=== PATIENT | male | born 1950 | race Caucasian/White ===

== ENCOUNTER 2018-03-11 09:57 | Emergency (ER) | payer MEDICARE, SELFPAY ==
[2018-03-11 10:04] VITALS: BP 177/76; PULSE 67; RESP 16; TEMP 37; O2SAT 95
--- NOTE | 2018-03-11 10:57 | DI.CT_ITS ---
SYMPTOMS/DIAGNOSIS: LEFT FLANK PAIN RENAL COLIC CT: There is a 0.5 cm stone just proximal to the left ureterovesical junction causing mild to moderate hydronephrosis. There are nonobstructing stones seen in the left kidney. There is a 6.3 cm transverse x 5.4 cm craniocaudad x 6.5 cm AP hypodense mass in the inferior aspect of the left kidney. The right kidney shows no evidence of nephrolithiasis or obstructive uropathy. The urinary bladder is intact. The reproductive organs are unremarkable. The lack of IV contrast does limit evaluation of the abdominal and pelvic organs. There does appear to be decreased attenuation of the liver, suggesting hepatic steatosis. The gallbladder is negative. No biliary ductal dilatation is seen. No adrenal mass is present. The pancreas appears grossly unremarkable. There is atherosclerosis of the abdominal aorta, but no aneurysmal dilatation. The bowel shows no evidence of obstruction or inflammation. There is a normal retrocecal appendix present. Degenerative changes are seen in the spine. IMPRESSION: 1. A 5-6 mm stone in the distal left ureter causing mild to moderate hydronephrosis. 2. A 6.5 cm mass involving the lower pole of the left kidney. Neoplasm is suspected. A CT scan of the abdomen with contrast is recommended for further evaluation. 3. Left nephrolithiasis. The findings were discussed with the Emergency Department on the date of the examination.
--- NOTE | 2018-03-11 10:59 | W.ED.GENAD ---
Discharge Plan Disposition Patient Disposition: HOME Discharge Details Chief Complaint: Abd Prob Clinical Impression: Ureteral calculus, left, Left renal mass Primary Care Provider: Cedric Bowens ED Provider: Renny Laura Home Meds and New Rx's Prescriptions: New tamsulosin [Flomax] 0.4 mg capsule 0.4 mg PO DAILY Qty: 3 RF: 0 Continued clobetasol 60 GM ointment 60 gm Topical Twice a week Qty: 60 RF: 1 celecoxib [Celebrex] 200 MG capsule 200 mg PO DAILY Qty: 90 RF: 4 dofetilide 500 MCG capsule 500 mcg PO BID RF: 0 rosuvastatin [Crestor] 5 MG tablet 1 tab PO DAILY Qty: 90 RF: 4 Eliquis 5 MG tablet 5 mg PO BID Qty: 180 RF: 4 lisinopril 10 MG tablet 10 mg PO DAILY Qty: 90 RF: 4 Metoprolol Succinate 25 MG TAB.ER.24H 25 mg PO DAILY Qty: 90 RF: 4 multivitamin 1 EACH capsule 1 ea PO DAILY RF: 0 Discharge Instructions Instructions: Kidney Stones (ED), How to Strain Your Urine (ED) Additional Instructions: Please follow-up with oncology regarding left renal mass. Please contact your primary care physician to arrange follow-up. Return to the ER for any worsening or new concerning symptoms. Referrals: Cedric Bowens MD [Primary Care Provider] - Medical Decision Making 11:04 --67-year-old male with history of atrial fibrillation, hypertension, umbilical hernia, here with 3-4 days of persistent left back and flank pain. Minimally tender left lower quadrant with no peritoneal findings. Pain improved after taking NSAID this morning. Concern for renal stone versus diverticulitis versus other. Plan for stat CT of the abdomen pelvis. 13:00 --noncontrast CT abdomen and interpreted by radiology: 6 mm renal stone distal left ureter; left renal mass noted, recommend patient for CT with contrast. Labs reviewed and hematuria noted. 14:10 --CT of the abdomen pelvis with IV contrast interpreted by radiology: 7 cm left renal mass concerning for carcinoma. Call to [facility] [place] oncology to expedite follow-up. 14:55 -- Spoke with organic preparation technician oncologist at [facility] [place] - recommends outpatient workup to include staging imaging and biopsy of lesion. I called and spoke with Dr. Lua, covering for PCP Dr. Bowens, she will ensure expedited outpatient workup. Plan discussed with patient. HPI General Mode of arrival: ambulatory. Date/Time Provider Initiated Documentation: 03/11/18 10:18. Limitations to Documentation: no limitations. Information obtained by: patient and family. HPI Narrative: 67-year-old male with history of hypertension, A. fib, back pain, presents with chief complaint of left flank pain. Pain started 3-4 days ago and has persisted. Pain was initially localized to his left back and has since radiated around to his left flank and left lower abdomen. Pain is mild, described as a persistent pain and intermittently sharp with palpation and certain positions including flexing to the left. No dysuria, no hematuria, no nausea or vomiting. No fever. Related Data Home Medications Medication Instructions Recorded Confirmed multivitamin 1 ea PO DAILY 08/27/14 03/11/18 clobetasol 60 gm TOPICAL Twice a week #60 g 10/06/14 03/11/18 celecoxib [Celebrex] 200 mg PO DAILY #90 tab 03/03/16 03/11/18 dofetilide 500 mcg PO BID 04/21/16 03/11/18 Eliquis 5 mg PO BID #180 tab-cap 07/06/16 03/11/18 rosuvastatin [Crestor] 1 tab PO DAILY #90 tab 07/06/16 03/11/18 lisinopril 10 mg PO DAILY #90 tab-cap 01/16/17 03/11/18 tamsulosin [Flomax] 0.4 mg PO DAILY #3 cap 03/11/18 Previous Rx's Medication Instructions Recorded lisinopril 10 mg PO DAILY #90 tab-cap 01/16/17 tamsulosin [Flomax] 0.4 mg PO DAILY #3 cap 03/11/18 Allergies Allergy/AdvReac Type Severity Reaction Status Date / Time simvastatin AdvReac Intermediate MYALGIAS Unverified 03/11/18 10:08 General Stated Complaint: Abd Prob SHALA: 3 Review of Systems Review of Systems All systems reviewed & are unremarkable except as noted in HPI and below Respiratory Denies cough Gastrointestinal Reports abdominal pain and Denies vomiting PFSH Surgical History Amputation Arthroplasty of knee Arthroscopy Open Carpal Tunnel release Replacement of total knee joint Rotator Cuff Repair hernia repair Family History Mother Essential hypertension Heart disease Hyperlipidemia Father Essential hypertension Heart disease Hyperlipidemia Leukemia Sister No problems noted. Brother Essential hypertension Hyperlipidemia Grandfather Heart disease Grandfather Neoplasm Grandmother Heart disease Grandmother Heart disease Sister No problems noted. Brother Substance abuse Alcohol abuse Daughter No problems noted. Social History Smoking/Tobacco Use Status: Never Exam Const General: cooperative and no acute distress HENMT Head: normocephalic and atraumatic Mouth: moist mucous membranes Eyes Conjunctivae: normal conjunctivae Sclera: normal sclerae EOM: EOM intact bilaterally Neck Neck: trachea midline and supple Resp Auscultation: clear to auscultation bilaterally, no rales, no rhonchi and no wheezes Cardio Jugular venous pressure: no JVD Rate: regular rate and not tachycardic Rhythm: regular rhythm GI Palpation: soft, not firm, no guarding, no masses, not rigid and tender in the LLQ (lateral) Back/Spine/Pelvis Back: no CVA tenderness Skin General skin exam: no rashes or lesions noted Neuro General: alert, awake, oriented x3 and tone normal Extrem General: no edema Psych Appearance: grossly normal Mental Status: mental status grossly normal Speech and Movement: speech and movement normal Course Vital Signs Temperature 37 C 03/11/18 10:04 Pulse 67 03/11/18 10:04 Respiratory Rate 16 03/11/18 10:04 Blood Pressure 177/76 H 03/11/18 10:04 Pulse Oximetry 95 03/11/18 10:04 Temperature 37 C 03/11/18 10:04 Temperature Source Skin 03/11/18 10:04 Pulse 67 03/11/18 10:04 Respiratory Rate 16 03/11/18 10:04 Respiratory Effort Non-Labored 03/11/18 10:48 Blood Pressure 177/76 H 03/11/18 10:04 Blood Pressure Position Sitting 03/11/18 10:04 Pulse Oximetry 95 03/11/18 10:04 Oxygen Delivery Method Room Air 03/11/18 10:04 Oxygen Flow Rate 0 03/11/18 10:04 Pain Level 3 03/11/18 10:04
--- NOTE | 2018-03-11 11:05 | ED.GENADUL_ITS ---
Discharge Plan Disposition Patient Disposition: HOME Discharge Details Chief Complaint: Abd Prob Clinical Impression: Ureteral calculus, left, Left renal mass Primary Care Provider: Cedric Bowens ED Provider: Renny Laura Home Meds and New Rx's Prescriptions: New tamsulosin [Flomax] 0.4 mg capsule 0.4 mg PO DAILY Qty: 3 RF: 0 Continued clobetasol 60 GM ointment 60 gm Topical Twice a week Qty: 60 RF: 1 celecoxib [Celebrex] 200 MG capsule 200 mg PO DAILY Qty: 90 RF: 4 dofetilide 500 MCG capsule 500 mcg PO BID RF: 0 rosuvastatin [Crestor] 5 MG tablet 1 tab PO DAILY Qty: 90 RF: 4 Eliquis 5 MG tablet 5 mg PO BID Qty: 180 RF: 4 lisinopril 10 MG tablet 10 mg PO DAILY Qty: 90 RF: 4 Metoprolol Succinate 25 MG TAB.ER.24H 25 mg PO DAILY Qty: 90 RF: 4 multivitamin 1 EACH capsule 1 ea PO DAILY RF: 0 Discharge Instructions Instructions: Kidney Stones (ED), How to Strain Your Urine (ED) Additional Instructions: Please follow-up with oncology regarding left renal mass. Please contact your primary care physician to arrange follow-up. Return to the ER for any worsening or new concerning symptoms. Referrals: Cedric Bowens MD [Primary Care Provider] - Medical Decision Making 11:04 --67-year-old male with history of atrial fibrillation, hypertension, umbilical hernia, here with 3-4 days of persistent left back and flank pain. Minimally tender left lower quadrant with no peritoneal findings. Pain improved after taking NSAID this morning. Concern for renal stone versus diverticulitis versus other. Plan for stat CT of the abdomen pelvis. 13:00 --noncontrast CT abdomen and interpreted by radiology: 6 mm renal stone distal left ureter; left renal mass noted, recommend patient for CT with contrast. Labs reviewed and hematuria noted. 14:10 --CT of the abdomen pelvis with IV contrast interpreted by radiology: 7 cm left renal mass concerning for carcinoma. Call to [facility] [place] oncology to expedite follow-up. 14:55 -- Spoke with configuration consultant oncologist at [facility] [place] - recommends outpatient workup to include staging imaging and biopsy of lesion. I called and spoke with Dr. Lua, covering for PCP Dr. Bowens, she will ensure expedited outpatient workup. Plan discussed with patient. HPI General Mode of arrival: ambulatory . Date/Time Provider Initiated Documentation: 03/11/18 10:18 . Limitations to Documentation: no limitations . Information obtained by: patient and family . HPI Narrative: 67-year-old male with history of hypertension, A. fib, back pain, presents with chief complaint of left flank pain. Pain started 3-4 days ago and has persisted. Pain was initially localized to his left back and has since radiated around to his left flank and left lower abdomen. Pain is mild, described as a persistent pain and intermittently sharp with palpation and certain positions including flexing to the left. No dysuria, no hematuria, no nausea or vomiting. No fever. Related Data Home Medications Medication Instructions Recorded Confirmed multivitamin 1 ea PO DAILY 08/27/14 03/11/18 clobetasol 60 gm TOPICAL Twice a week #60 g 10/06/14 03/11/18 celecoxib [Celebrex] 200 mg PO DAILY #90 tab 03/03/16 03/11/18 dofetilide 500 mcg PO BID 04/21/16 03/11/18 Eliquis 5 mg PO BID #180 tab-cap 07/06/16 03/11/18 rosuvastatin [Crestor] 1 tab PO DAILY #90 tab 07/06/16 03/11/18 lisinopril 10 mg PO DAILY #90 tab-cap 01/16/17 03/11/18 tamsulosin [Flomax] 0.4 mg PO DAILY #3 cap 03/11/18 Previous Rx's Medication Instructions Recorded lisinopril 10 mg PO DAILY #90 tab-cap 01/16/17 tamsulosin [Flomax] 0.4 mg PO DAILY #3 cap 03/11/18 Allergies Allergy/AdvReac Type Severity Reaction Status Date / Time simvastatin AdvReac Intermediate MYALGIAS Unverified 03/11/18 10:08 General Stated Complaint: Abd Prob SHALA: 3 Review of Systems Review of Systems All systems reviewed & are unremarkable except as noted in HPI and below Respiratory Denies cough Gastrointestinal Reports abdominal pain and Denies vomiting PFSH Surgical History Amputation Arthroplasty of knee Arthroscopy Open Carpal Tunnel release Replacement of total knee joint Rotator Cuff Repair hernia repair Family History Mother Essential hypertension Heart disease Hyperlipidemia Father Essential hypertension Heart disease Hyperlipidemia Leukemia Sister No problems noted. Brother Essential hypertension Hyperlipidemia Grandfather Heart disease Grandfather Neoplasm Grandmother Heart disease Grandmother Heart disease Sister No problems noted. Brother Substance abuse Alcohol abuse Daughter No problems noted. Social History Smoking/Tobacco Use Status: Never Exam Const General: cooperative and no acute distress HENMT Head: normocephalic and atraumatic Mouth: moist mucous membranes Eyes Conjunctivae: normal conjunctivae Sclera: normal sclerae EOM: EOM intact bilaterally Neck Neck: trachea midline and supple Resp Auscultation: clear to auscultation bilaterally, no rales, no rhonchi and no wheezes Cardio Jugular venous pressure: no JVD Rate: regular rate and not tachycardic Rhythm: regular rhythm GI Palpation: soft, not firm, no guarding, no masses, not rigid and tender in the LLQ (lateral) Back/Spine/Pelvis Back: no CVA tenderness Skin General skin exam: no rashes or lesions noted Neuro General: alert, awake, oriented x3 and tone normal Extrem General: no edema Psych Appearance: grossly normal Mental Status: mental status grossly normal Speech and Movement: speech and movement normal Course Vital Signs Temperature 37 C 03/11/18 10:04 Pulse 67 03/11/18 10:04 Respiratory Rate 16 03/11/18 10:04 Blood Pressure 177/76 H 03/11/18 10:04 Pulse Oximetry 95 03/11/18 10:04 Temperature 37 C 03/11/18 10:04 Temperature Source Skin 03/11/18 10:04 Pulse 67 03/11/18 10:04 Respiratory Rate 16 03/11/18 10:04 Respiratory Effort Non-Labored 03/11/18 10:48 Blood Pressure 177/76 H 03/11/18 10:04 Blood Pressure Position Sitting 03/11/18 10:04 Pulse Oximetry 95 03/11/18 10:04 Oxygen Delivery Method Room Air 03/11/18 10:04 Oxygen Flow Rate 0 03/11/18 10:04 Pain Level 3 03/11/18 10:04
[2018-03-11] MEDS: Lactated Ringers 1,000 ML 125 ML IV (11:23)
[2018-03-11 11:27] LABS: Abs Immature Grans 0.01 k/cumm (0.0-0.09); Absolute Basophil Count 0.02 k/cumm (0.0-0.2); Absolute Eosinophil Count 0.06 k/cumm (0.0-0.7); Absolute Lymphocyte Count 0.84 k/cumm (1.2-3.4); Absolute Monocyte Count 0.77 k/cumm (0.11-0.7); Absolute Neutrophil Count 7.18 k/cumm (1.2-6.7); Basophils % 0.2; Eosinophils % 0.7; HCT 42.1 % (40.0-50.0); HGB 14.1 g/dL (13.5-17.5); Immature Grans % 0.1; Lymphocytes % 9.5; Mean Corp. HGB Concentration 33.5 g/dL (32.0-36.0); Mean Corpuscular Hemoglobin 31.4 pg (27.0-33.0); Mean Corpuscular Volume 93.8 fL (80-95); Mean Platelet Volume 10.6 fL (8.0-11.0); Monocytes % 8.7; Neutrophils % 80.8; Platelet Count 162 x1000/uL (130-400); RBC 4.49 m/cumm (4.50-6.00); RBC Distribution Width 13.5 % (11.8-14.1); White Blood Cell Count 8.88 k/cumm (4.4-10.8)
[2018-03-11 11:31] LABS: Bilirubin Negative (Negative); Blood Large (Negative); Clarity Clear; Glucose Negative (Negative); Ketones Negative (Negative); Leukocyte Esterase Negative (Negative); Nitrite Negative (Negative); Specific Gravity 1.025 (1.005-1.025); Urobilinogen 0.2 EU/dL (Up TO 0.2); pH 5.5 (5-8)
[2018-03-11 11:41] LABS: ALT 43 U/L (12-78); AST 29 U/L (15-37); Albumin 3.7 g/dL (3.4-5.0); Alkaline Phosphatase 58 U/L (46-116); Anion Gap 12.5 mmol/L (3-11); BUN 20 mg/dL (7-18); Bilirubin, Total 0.8 mg/dL (0.2-1.0); CO2 25.5 mmol/L (21.0-32.0); CREATININE 1.16 mg/dL (0.70-1.30); Calcium 9.1 mg/dL (8.5-10.1); Chloride 100 mmol/L (98-107); Glucose 108 mg/dL (70-100); Lipase 66 U/L (73-393); Potassium 4.3 mmol/L (3.5-5.1); Sodium 138 mmol/L (136-145); Total Protein 7.8 g/dL (6.4-8.2)
[2018-03-11 11:49] LABS: Bacteria Few HPF (Negative); C & S Indicated? No; Casts Negative LPF (Negative); Crystals Negative HPF (Negative); Epithelial Cells Negative HPF (Negative); Mucus Moderate (Negative); Other Cells Few Renal (Negative); RBC >50 (0-2)
--- NOTE | 2018-03-11 12:15 | DI.CT_ITS ---
SYMPTOMS/DIAGNOSIS: LEFT FLANK PAIN, FINDING ON NONCONTRAST STUDY CT SCAN OF THE ABDOMEN: CT scan of the abdomen was performed following the uneventful administration of intravenous contrast material. Comparison examination is from earlier in the day. There is delayed contrast in the left kidney with moderate dilatation of the collecting system consistent with the patient's known obstructing distal left ureteral calculus. There are nonobstructing stones seen within the left kidney. There is an enhancing mass in the lower pole of the left kidney measuring 6.8 cm AP x 6.2 cm transverse x 5.9 cm craniocaudad. There is central low attenuation, which may reflect necrosis. Primary diagnostic concern is for renal cell carcinoma. The right kidney shows normal enhancement. No obstruction is seen. There is decreased attenuation diffusely in the liver consistent with fatty infiltration. No hepatic mass is seen. The portal and superior mesenteric veins are patent. The gallbladder is negative. No biliary ductal dilatation is seen. There is no evidence of an adrenal mass. The pancreas is grossly unremarkable. There is no abdominal ascites, adenopathy or pneumoperitoneum. The bowel appears grossly unremarkable. There is atherosclerosis of the abdominal aorta, but no aneurysmal dilatation is seen. The renal vein appears patent and grossly unremarkable. There are degenerative changes seen in the spine. No gross lytic or sclerotic lesions are present. IMPRESSION: 1. A 6.8 cm heterogeneously enhancing mass involving the lower pole of the left kidney. Primary diagnostic concern is for a renal neoplasm. 2. Left hydronephrosis due to a distal obstructing stone seen on the renal colic CT from earlier in the day. 3. Left nephrolithiasis. The findings were discussed with the Emergency Department on the date of the examination.
[2018-03-11 12:44] VITALS: BP 145/61; PULSE 58; RESP 16; TEMP 37.2; O2SAT 95
[2018-03-11] MEDS: Omnipaque 350 MG/ML 100 ML BTL IV (13:17)
[2018-03-11] MEDS: Ibuprofen 400 MG TAB PO (14:34)
[2018-03-11] MEDS: oxyCODONE 5 MG TAB PO (14:34)
[2018-03-11] MEDS: Tamsulosin 0.4 MG CAPCR PO (14:35)
[2018-03-11] MEDS: Ondansetron O.D.T. 4 MG TABEF PO (14:38)
== END 2018-03-11 15:23 | disposition home or self-care (01) ==
PROVIDERS: Emergency Provider Student in an Organized Health Care Education/Training Program; PCP Family Medicine
DX: N20.1 Calculus of ureter (principal); N28.89 Other specified disorders of kidney and ureter; I10 Essential (primary) hypertension; I48.91 Unspecified atrial fibrillation
CPT/HCPCS: 36415; 80053; 83690; 96360; 96361; 99285; 74160; 74176; 81003; 81015; 85025; 99284; J3490

== ENCOUNTER 2022-11-14 02:45 | Outpatient (CLI) | payer MEDICARE, SELFPAY ==
[2022-11-14 09:12] LABS: Abs Immature Grans 0.03 10^3/uL (0.0-0.06); Absolute Basophil Count 0.02 10^3/uL (0.0-0.2); Absolute Eosinophil Count 0.23 10^3/uL (0.0-0.7); Absolute Lymphocyte Count 0.92 10^3/uL (1.2-3.4); Absolute Monocyte Count 0.56 10^3/uL (0.1-0.8); Absolute Neutrophil Count 4.38 10^3/uL (1.2-6.7); Basophils % 0.3; Eosinophils % 3.7; HCT 36.5 % (40.0-50.0); HGB 12.2 g/dL (13.5-17.5); Immature Grans % 0.5; MCH 29.9 pg (27.0-33.0); MCHC 33.4 % (32.0-36.0); MCV 90 fL (80-95); MPV 10.2 fL (8.0-11.0); Monocytes % 9.1; Neutrophils % 71.4; Platelet Count 172 10^3/uL (130-400); RBC 4.08 10^6/uL (4.36-5.78); RDW 14.3 % (11.8-14.1); WBC 6.14 10^3/uL (4.4-10.8)
[2022-11-14 09:38] LABS: ALT 30 U/L (16-63); AST 29 U/L (15-37); Albumin 3.3 g/dL (3.4-5.0); Alkaline Phosphatase 66 U/L (46-116); Anion Gap 7.7 mmol/L (3-11); BUN 18 mg/dL (7-18); Bilirubin, Total 0.4 mg/dL (0.2-1.0); CO2 26.3 mmol/L (21.0-32.0); CREATININE 1.1 mg/dL (0.70-1.30); Chloride 101 mmol/L (98-107); Estimated GFR 70.88 (mL/min/1.73m2); FREE T4 0.88 ng/dL (0.76-1.46); Glucose 137 mg/dL (74-106); Sodium 135 mmol/L (136-145); TSH 1.75 uIU/mL (0.36-3.74); Total Protein 7.2 g/dL (6.4-8.2)
== END 2022-11-14 02:46 | disposition home or self-care (01) ==
LOC: LBO 02:45
PROVIDERS: Visit Provider Internal Medicine
DX: C78.01 Secondary malignant neoplasm of right lung (principal); C64.9 Malignant neoplasm of unspecified kidney, except renal pelvis; Z79.899 Other long term (current) drug therapy; I48.0 Paroxysmal atrial fibrillation
CPT/HCPCS: 36415; 80053; 83735; 84439; 84443; 85025

== ENCOUNTER 2022-12-05 01:59 | Outpatient (CLI) | payer MEDICARE, SELFPAY ==
[2022-12-05 09:30] LABS: Abs Immature Grans 0.02 10^3/uL (0.0-0.06); Absolute Basophil Count 0.05 10^3/uL (0.0-0.2); Absolute Eosinophil Count 0.27 10^3/uL (0.0-0.7); Absolute Lymphocyte Count 1.03 10^3/uL (1.2-3.4); Absolute Neutrophil Count 4.07 10^3/uL (1.2-6.7); Basophils % 0.8; Eosinophils % 4.5; HCT 38.2 % (40.0-50.0); HGB 12.7 g/dL (13.5-17.5); Immature Grans % 0.3; Lymphocytes % 17.1; MCHC 33.2 % (32.0-36.0); MCV 90 fL (80-95); MPV 10.2 fL (8.0-11.0); Monocytes % 9.9; Neutrophils % 67.4; Platelet Count 177 10^3/uL (130-400); RBC 4.23 10^6/uL (4.36-5.78); RDW 14.5 % (11.8-14.1); RDW-SD 47.6 fL; WBC 6.04 10^3/uL (4.4-10.8)
[2022-12-05 09:56] LABS: ALT 39 U/L (16-63); AST 24 U/L (15-37); Albumin 3.2 g/dL (3.4-5.0); Alkaline Phosphatase 66 U/L (46-116); Anion Gap 7.7 mmol/L (3-11); BUN 19 mg/dL (7-18); Bilirubin, Total 0.4 mg/dL (0.2-1.0); CO2 23.3 mmol/L (21.0-32.0); CREATININE 1.2 mg/dL (0.70-1.30); Chloride 106 mmol/L (98-107); Estimated GFR 63.46 (mL/min/1.73m2); FREE T4 1.26 ng/dL (0.76-1.46); Glucose 128 mg/dL (74-106); Magnesium 1.8 mg/dL (1.8-2.4); Potassium 3.9 mmol/L (3.5-5.1); Sodium 137 mmol/L (136-145); TSH 0.09 uIU/mL (0.36-3.74)
== END 2022-12-05 02:00 | disposition home or self-care (01) ==
LOC: LBO 01:59
PROVIDERS: Visit Provider Internal Medicine
DX: Z79.899 Other long term (current) drug therapy (principal); I48.0 Paroxysmal atrial fibrillation; C78.01 Secondary malignant neoplasm of right lung; C64.9 Malignant neoplasm of unspecified kidney, except renal pelvis
CPT/HCPCS: 36415; 80053; 83735; 84439; 84443; 85025

== ENCOUNTER 2022-12-25 03:35 | Outpatient (CLI) | payer MEDICARE, SELFPAY ==
[2022-12-25 10:45] LABS: Abs Immature Grans 0.02 10^3/uL (0.0-0.06); Absolute Basophil Count 0.04 10^3/uL (0.0-0.2); Absolute Eosinophil Count 0.26 10^3/uL (0.0-0.7); Absolute Lymphocyte Count 0.99 10^3/uL (1.2-3.4); Absolute Monocyte Count 0.65 10^3/uL (0.1-0.8); Absolute Neutrophil Count 3.18 10^3/uL (1.2-6.7); Basophils % 0.8; Eosinophils % 5.1; HCT 37.5 % (40.0-50.0); HGB 12.5 g/dL (13.5-17.5); Immature Grans % 0.4; Lymphocytes % 19.3; MCH 30.2 pg (27.0-33.0); MCHC 33.3 % (32.0-36.0); MCV 91 fL (80-95); MPV 10.1 fL (8.0-11.0); Monocytes % 12.6; Neutrophils % 61.8; Platelet Count 183 10^3/uL (130-400); RBC 4.14 10^6/uL (4.36-5.78); RDW 14.1 % (11.8-14.1); RDW-SD 47.2 fL; WBC 5.14 10^3/uL (4.4-10.8)
[2022-12-25 11:09] LABS: ALT 41 U/L (16-63); AST 29 U/L (15-37); Albumin 3.4 g/dL (3.4-5.0); Alkaline Phosphatase 65 U/L (46-116); BUN 34 mg/dL (7-18); Bilirubin, Total 0.3 mg/dL (0.2-1.0); Calcium 9.5 mg/dL (8.5-10.1); Chloride 105 mmol/L (98-107); Estimated GFR 78.98 (mL/min/1.73m2); FREE T4 1.63 ng/dL (0.76-1.46); Glucose 126 mg/dL (74-106); Magnesium 2.2 mg/dL (1.8-2.4); Potassium 4.6 mmol/L (3.5-5.1); Sodium 137 mmol/L (136-145); TSH 0.01 uIU/mL (0.36-3.74); Total Protein 7.3 g/dL (6.4-8.2)
== END 2022-12-25 03:36 | disposition home or self-care (01) ==
PROVIDERS: Visit Provider Internal Medicine
DX: Z79.899 Other long term (current) drug therapy (principal); C78.01 Secondary malignant neoplasm of right lung; C64.9 Malignant neoplasm of unspecified kidney, except renal pelvis
CPT/HCPCS: 36415; 80053; 83735; 84439; 84443; 85025

== ENCOUNTER 2023-01-22 04:17 | Outpatient (CLI) | payer MEDICARE, SELFPAY ==
[2023-01-22 10:47] LABS: Abs Immature Grans 0.02 10^3/uL (0.0-0.06); Absolute Basophil Count 0.04 10^3/uL (0.0-0.2); Absolute Eosinophil Count 0.31 10^3/uL (0.0-0.7); Absolute Lymphocyte Count 1.15 10^3/uL (1.2-3.4); Absolute Monocyte Count 0.49 10^3/uL (0.1-0.8); Absolute Neutrophil Count 3.07 10^3/uL (1.2-6.7); Basophils % 0.8; Eosinophils % 6.1; HCT 38.4 % (40.0-50.0); HGB 12.7 g/dL (13.5-17.5); Immature Grans % 0.4; Lymphocytes % 22.6; MCH 29.7 pg (27.0-33.0); MCHC 33.1 % (32.0-36.0); MCV 90 fL (80-95); MPV 9.6 fL (8.0-11.0); Monocytes % 9.6; Neutrophils % 60.5; Platelet Count 179 10^3/uL (130-400); RBC 4.28 10^6/uL (4.36-5.78); RDW 13.9 % (11.8-14.1); RDW-SD 45.2 fL; WBC 5.08 10^3/uL (4.4-10.8)
[2023-01-22 11:09] LABS: ALT 39 U/L (16-63); AST 22 U/L (15-37); Albumin 3.4 g/dL (3.4-5.0); Alkaline Phosphatase 64 U/L (46-116); Anion Gap 6.9 mmol/L (3-11); BUN 26 mg/dL (7-18); Bilirubin, Total 0.4 mg/dL (0.2-1.0); CO2 26.1 mmol/L (21.0-32.0); CREATININE 1.2 mg/dL (0.70-1.30); Calcium 9.3 mg/dL (8.5-10.1); Chloride 103 mmol/L (98-107); Estimated GFR 63.46 (mL/min/1.73m2); FREE T4 0.83 ng/dL (0.76-1.46); Glucose 112 mg/dL (74-106); Potassium 4.3 mmol/L (3.5-5.1); Sodium 136 mmol/L (136-145); TSH 0.37 uIU/mL (0.36-3.74)
== END 2023-01-22 04:18 | disposition home or self-care (01) ==
LOC: LBO 04:17
PROVIDERS: Visit Provider Internal Medicine
DX: Z79.899 Other long term (current) drug therapy (principal); C78.01 Secondary malignant neoplasm of right lung; C64.9 Malignant neoplasm of unspecified kidney, except renal pelvis
CPT/HCPCS: 36415; 80053; 83735; 84439; 84443; 85025

== ENCOUNTER 2023-02-13 04:25 | Outpatient (CLI) | payer MEDICARE, SELFPAY ==
[2023-02-13 08:09] LABS: Abs Immature Grans 0.02 10^3/uL (0.0-0.06); Absolute Basophil Count 0.05 10^3/uL (0.0-0.2); Absolute Eosinophil Count 0.28 10^3/uL (0.0-0.7); Absolute Lymphocyte Count 0.95 10^3/uL (1.2-3.4); Absolute Monocyte Count 0.43 10^3/uL (0.1-0.8); Absolute Neutrophil Count 3.25 10^3/uL (1.2-6.7); Eosinophils % 5.6; HGB 12.1 g/dL (13.5-17.5); Immature Grans % 0.4; Lymphocytes % 19.1; MCH 30.1 pg (27.0-33.0); MCHC 32.7 % (32.0-36.0); MCV 92 fL (80-95); MPV 9.8 fL (8.0-11.0); Monocytes % 8.6; Neutrophils % 65.3; Platelet Count 143 10^3/uL (130-400); RBC 4.02 10^6/uL (4.36-5.78); RDW 14.6 % (11.8-14.1); RDW-SD 49.1 fL; WBC 4.98 10^3/uL (4.4-10.8)
[2023-02-13 08:33] LABS: ALT 34 U/L (16-63); AST 24 U/L (15-37); Albumin 3.4 g/dL (3.4-5.0); Alkaline Phosphatase 58 U/L (46-116); Anion Gap 9.3 mmol/L (3-11); BUN 19 mg/dL (7-18); Bilirubin, Total 0.4 mg/dL (0.2-1.0); CO2 24.7 mmol/L (21.0-32.0); Calcium 8.9 mg/dL (8.5-10.1); Chloride 103 mmol/L (98-107); Estimated GFR 78.98 (mL/min/1.73m2); FREE T4 0.69 ng/dL (0.76-1.46); Glucose 107 mg/dL (74-106); Potassium 4.2 mmol/L (3.5-5.1); Sodium 137 mmol/L (136-145); TSH 7.74 uIU/mL (0.36-3.74)
== END 2023-02-13 04:26 | disposition home or self-care (01) ==
LOC: LBO 04:29
PROVIDERS: Visit Provider Internal Medicine
DX: Z79.899 Other long term (current) drug therapy (principal); C78.01 Secondary malignant neoplasm of right lung; C64.9 Malignant neoplasm of unspecified kidney, except renal pelvis
CPT/HCPCS: 36415; 80053; 84439; 84443; 85025

== ENCOUNTER 2023-03-06 03:17 | Outpatient (CLI) | payer MEDICARE, SELFPAY ==
[2023-03-06 09:15] LABS: Abs Immature Grans 0.02 10^3/uL (0.0-0.06); Absolute Basophil Count 0.04 10^3/uL (0.0-0.2); Absolute Eosinophil Count 0.33 10^3/uL (0.0-0.7); Absolute Neutrophil Count 3.14 10^3/uL (1.2-6.7); Basophils % 0.7; Eosinophils % 5.7; HGB 13.4 g/dL (13.5-17.5); Immature Grans % 0.3; Lymphocytes % 27.4; MCH 30.6 pg (27.0-33.0); MCHC 33.5 % (32.0-36.0); MCV 91 fL (80-95); MPV 9.6 fL (8.0-11.0); Neutrophils % 53.9; Platelet Count 201 10^3/uL (130-400); RBC 4.38 10^6/uL (4.36-5.78); RDW 14.6 % (11.8-14.1); WBC 5.83 10^3/uL (4.4-10.8)
[2023-03-06 09:40] LABS: ALT 41 U/L (16-63); AST 28 U/L (15-37); Albumin 3.4 g/dL (3.4-5.0); Alkaline Phosphatase 57 U/L (46-116); Anion Gap 9.4 mmol/L (3-11); BUN 30 mg/dL (7-18); Bilirubin, Total 0.5 mg/dL (0.2-1.0); CO2 24.6 mmol/L (21.0-32.0); CREATININE 1.5 mg/dL (0.70-1.30); Calcium 8.9 mg/dL (8.5-10.1); Chloride 103 mmol/L (98-107); Estimated GFR 48.55 (mL/min/1.73m2); FREE T4 0.67 ng/dL (0.76-1.46); Glucose 96 mg/dL (74-106); Potassium 4.5 mmol/L (3.5-5.1); Sodium 137 mmol/L (136-145); TSH 18.31 uIU/mL (0.36-3.74); Total Protein 7.1 g/dL (6.4-8.2)
== END 2023-03-06 03:18 | disposition home or self-care (01) ==
LOC: LBO 03:17
PROVIDERS: Visit Provider Internal Medicine
DX: R94.6 Abnormal results of thyroid function studies (principal); C78.01 Secondary malignant neoplasm of right lung; C64.9 Malignant neoplasm of unspecified kidney, except renal pelvis
CPT/HCPCS: 36415; 80053; 84439; 84443; 85025

== ENCOUNTER 2023-03-27 03:50 | Outpatient (CLI) | payer MEDICARE, SELFPAY ==
[2023-03-27 09:41] LABS: Abs Immature Grans 0.02 10^3/uL (0.0-0.06); Absolute Basophil Count 0.05 10^3/uL (0.0-0.2); Absolute Eosinophil Count 0.32 10^3/uL (0.0-0.7); Absolute Lymphocyte Count 1.02 10^3/uL (1.2-3.4); Absolute Monocyte Count 0.64 10^3/uL (0.1-0.8); Absolute Neutrophil Count 3.28 10^3/uL (1.2-6.7); Basophils % 0.9; HGB 12.7 g/dL (13.5-17.5); Immature Grans % 0.4; Lymphocytes % 19.1; MCH 31.4 pg (27.0-33.0); MCHC 34.3 % (32.0-36.0); MCV 92 fL (80-95); MPV 9.7 fL (8.0-11.0); Neutrophils % 61.6; Platelet Count 174 10^3/uL (130-400); RBC 4.04 10^6/uL (4.36-5.78); RDW 14.5 % (11.8-14.1); WBC 5.33 10^3/uL (4.4-10.8)
[2023-03-27 10:16] LABS: ALT 38 U/L (16-63); AST 29 U/L (15-37); Albumin 3.5 g/dL (3.4-5.0); Alkaline Phosphatase 58 U/L (46-116); Anion Gap 8.6 mmol/L (3-11); BUN 20 mg/dL (7-18); Bilirubin, Total 0.5 mg/dL (0.2-1.0); CO2 26.4 mmol/L (21.0-32.0); CREATININE 1.1 mg/dL (0.70-1.30); Calcium 9.3 mg/dL (8.5-10.1); Chloride 99 mmol/L (98-107); Estimated GFR 70.44 (mL/min/1.73m2); FREE T4 0.74 ng/dL (0.76-1.46); Glucose 115 mg/dL (74-106); Potassium 4.2 mmol/L (3.5-5.1); Sodium 134 mmol/L (136-145); TSH 23.13 uIU/mL (0.36-3.74); Total Protein 7.2 g/dL (6.4-8.2)
== END 2023-03-27 03:51 | disposition home or self-care (01) ==
LOC: LBO 03:50
PROVIDERS: Visit Provider Internal Medicine
DX: Z79.899 Other long term (current) drug therapy (principal); C78.01 Secondary malignant neoplasm of right lung
CPT/HCPCS: 36415; 80053; 84439; 84443; 85025

== ENCOUNTER 2023-04-17 03:27 | Outpatient (CLI) | payer MEDICARE, SELFPAY ==
[2023-04-17 12:31] LABS: Abs Immature Grans 0.01 10^3/uL (0.0-0.06); Absolute Basophil Count 0.04 10^3/uL (0.0-0.2); Absolute Monocyte Count 0.72 10^3/uL (0.1-0.8); Absolute Neutrophil Count 3.26 10^3/uL (1.2-6.7); Basophils % 0.7; Eosinophils % 5.4; HCT 38.7 % (40.0-50.0); HGB 12.9 g/dL (13.5-17.5); Immature Grans % 0.2; Lymphocytes % 21.7; MCH 30.8 pg (27.0-33.0); MCHC 33.3 % (32.0-36.0); MCV 92 fL (80-95); MPV 9.8 fL (8.0-11.0); Platelet Count 182 10^3/uL (130-400); RBC 4.19 10^6/uL (4.36-5.78); RDW 14.7 % (11.8-14.1); RDW-SD 49.9 fL; WBC 5.53 10^3/uL (4.4-10.8)
[2023-04-17 13:10] LABS: ALT 43 U/L (16-63); AST 27 U/L (15-37); Albumin 3.8 g/dL (3.4-5.0); Alkaline Phosphatase 61 U/L (46-116); Anion Gap 12.1 mmol/L (3-11); BUN 21 mg/dL (7-18); Bilirubin, Total 0.6 mg/dL (0.2-1.0); CO2 24.9 mmol/L (21.0-32.0); CREATININE 1.2 mg/dL (0.70-1.30); Calcium 9.1 mg/dL (8.5-10.1); Chloride 103 mmol/L (98-107); Estimated GFR 63.46 (mL/min/1.73m2); Glucose 101 mg/dL (74-106); Potassium 4.4 mmol/L (3.5-5.1); Sodium 140 mmol/L (136-145); TSH 17.29 uIU/mL (0.36-3.74); Total Protein 7.7 g/dL (6.4-8.2)
== END 2023-04-17 03:28 | disposition home or self-care (01) ==
LOC: LBO 03:27
PROVIDERS: Visit Provider Internal Medicine
DX: Z79.899 Other long term (current) drug therapy (principal); C78.01 Secondary malignant neoplasm of right lung
CPT/HCPCS: 36415; 80053; 84439; 84443; 85025

== ENCOUNTER 2023-05-08 04:36 | Outpatient (CLI) | payer MEDICARE, SELFPAY ==
[2023-05-08 10:12] LABS: Abs Immature Grans 0.02 10^3/uL (0.0-0.06); Absolute Basophil Count 0.04 10^3/uL (0.0-0.2); Absolute Eosinophil Count 0.33 10^3/uL (0.0-0.7); Absolute Lymphocyte Count 1.05 10^3/uL (1.2-3.4); Absolute Monocyte Count 0.56 10^3/uL (0.1-0.8); Absolute Neutrophil Count 3.65 10^3/uL (1.2-6.7); Basophils % 0.7; Eosinophils % 5.8; HCT 38.5 % (40.0-50.0); Immature Grans % 0.4; Lymphocytes % 18.6; MCH 31.4 pg (27.0-33.0); MCHC 33.8 % (32.0-36.0); MCV 93 fL (80-95); MPV 9.9 fL (8.0-11.0); Monocytes % 9.9; Neutrophils % 64.6; Platelet Count 183 10^3/uL (130-400); RBC 4.14 10^6/uL (4.36-5.78); RDW-SD 47.8 fL; WBC 5.65 10^3/uL (4.4-10.8)
[2023-05-08 10:40] LABS: ALT 34 U/L (16-63); AST 25 U/L (15-37); Albumin 3.4 g/dL (3.4-5.0); Alkaline Phosphatase 57 U/L (46-116); Anion Gap 9.2 mmol/L (3-11); BUN 23 mg/dL (7-18); Bilirubin, Total 0.5 mg/dL (0.2-1.0); CO2 23.8 mmol/L (21.0-32.0); CREATININE 1.3 mg/dL (0.70-1.30); Calcium 8.8 mg/dL (8.5-10.1); Chloride 101 mmol/L (98-107); Estimated GFR 57.65 (mL/min/1.73m2); FREE T4 0.87 ng/dL (0.76-1.46); Glucose 127 mg/dL (74-106); Potassium 4.4 mmol/L (3.5-5.1); Sodium 134 mmol/L (136-145); TSH 11.11 uIU/Ml (0.36-3.74); Total Protein 7.1 g/dL (6.4-8.2)
== END 2023-05-08 04:37 | disposition home or self-care (01) ==
PROVIDERS: Visit Provider Internal Medicine
DX: Z79.899 Other long term (current) drug therapy (principal); C78.01 Secondary malignant neoplasm of right lung
CPT/HCPCS: 36415; 80053; 84439; 84443; 85025

== ENCOUNTER 2023-05-29 05:13 | Outpatient (CLI) | payer MEDICARE, SELFPAY ==
[2023-05-29 10:37] LABS: Abs Immature Grans 0.03 10^3/uL (0.0-0.06); Absolute Basophil Count 0.04 10^3/uL (0.0-0.2); Absolute Eosinophil Count 0.32 10^3/uL (0.0-0.7); Absolute Lymphocyte Count 1.13 10^3/uL (1.2-3.4); Absolute Monocyte Count 0.74 10^3/uL (0.1-0.8); Absolute Neutrophil Count 3.65 10^3/uL (1.2-6.7); Basophils % 0.7; Eosinophils % 5.4; HCT 39.4 % (40.0-50.0); HGB 13.1 g/dL (13.5-17.5); Immature Grans % 0.5; Lymphocytes % 19.1; MCH 31.4 pg (27.0-33.0); MCHC 33.2 % (32.0-36.0); MCV 95 fL (80-95); MPV 9.8 fL (8.0-11.0); Monocytes % 12.5; Neutrophils % 61.8; Platelet Count 180 10^3/uL (130-400); RBC 4.17 10^6/uL (4.36-5.78); RDW 13.5 % (11.8-14.1); RDW-SD 46.6 fL; WBC 5.91 10^3/uL (4.4-10.8)
[2023-05-29 11:03] LABS: ALT 36 U/L (16-63); AST 24 U/L (15-37); Albumin 3.5 g/dL (3.4-5.0); Alkaline Phosphatase 57 U/L (46-116); Anion Gap 8.7 mmol/L (3-11); BUN 23 mg/dL (7-18); Bilirubin, Total 0.6 mg/dL (0.2-1.0); CO2 25.3 mmol/L (21.0-32.0); CREATININE 1.1 mg/dL (0.70-1.30); Chloride 102 mmol/L (98-107); Estimated GFR 70.44 (mL/min/1.73m2); FREE T4 0.99 ng/dL (0.76-1.46); Glucose 112 mg/dL (74-106); Potassium 4.5 mmol/L (3.5-5.1); Sodium 136 mmol/L (136-145); TSH 4.51 uIU/Ml (0.36-3.74); Total Protein 7.2 g/dL (6.4-8.2)
== END 2023-05-29 05:14 | disposition home or self-care (01) ==
PROVIDERS: Visit Provider Internal Medicine
DX: Z79.899 Other long term (current) drug therapy (principal); C78.01 Secondary malignant neoplasm of right lung; C64.9 Malignant neoplasm of unspecified kidney, except renal pelvis
CPT/HCPCS: 36415; 80053; 84439; 84443; 85025

== ENCOUNTER 2023-07-10 12:00 | Outpatient (CLI) | payer MEDICARE, SELFPAY ==
[2023-07-10 12:12] LABS: Abs Immature Grans 0.02 10^3/uL (0.0-0.06); Absolute Basophil Count 0.04 10^3/uL (0.0-0.2); Absolute Eosinophil Count 0.27 10^3/uL (0.0-0.7); Absolute Lymphocyte Count 1.06 10^3/uL (1.2-3.4); Absolute Monocyte Count 0.62 10^3/uL (0.1-0.8); Absolute Neutrophil Count 3.75 10^3/uL (1.2-6.7); Basophils % 0.7 %; Eosinophils % 4.7 %; HGB 12.7 g/dL (13.5-17.5); Immature Grans % 0.3 %; Lymphocytes % 18.4 %; MCH 31.4 pg (27.0-33.0); MCHC 34.3 % (32.0-36.0); MCV 92 fL (80-95); MPV 9.9 fL (8.0-11.0); Monocytes % 10.8 %; Neutrophils % 65.1 %; Platelet Count 197 10^3/uL (130-400); RBC 4.04 10^6/uL (4.36-5.78); RDW 13.2 % (11.8-14.1); RDW-SD 43.9 fL; WBC 5.76 10^3/uL (4.4-10.8)
[2023-07-10 12:36] LABS: ALT 37 U/L (16-63); AST 24 U/L (15-37); Albumin 3.7 g/dL (3.4-5.0); Alkaline Phosphatase 59 U/L (46-116); Anion Gap 11.5 mmol/L (3-11); BUN 22 mg/dL (7-18); Bilirubin, Total 0.7 mg/dL (0.2-1.0); CO2 24.5 mmol/L (21.0-32.0); CREATININE 1.2 mg/dL (0.70-1.30); Calcium 8.9 mg/dL (8.5-10.1); Chloride 100 mmol/L (98-107); Estimated GFR 63.46 (mL/min/1.73m2); FREE T4 1.13 ng/dL (0.76-1.46); Glucose 95 mg/dL (74-106); Potassium 4.3 mmol/L (3.5-5.1); Sodium 136 mmol/L (136-145); TSH 3.03 uIU/Ml (0.36-3.74); Total Protein 7.1 g/dL (6.4-8.2)
== END 2023-07-10 12:01 | disposition home or self-care (01) ==
LOC: LBO 12:04
PROVIDERS: Visit Provider Internal Medicine
DX: Z79.899 Other long term (current) drug therapy (principal)
CPT/HCPCS: 36415; 80053; 84439; 84443; 85025

== ENCOUNTER 2023-07-31 14:04 | Outpatient (CLI) | payer MEDICARE, SELFPAY ==
[2023-07-31 12:29] LABS: Abs Immature Grans 0.02 10^3/uL (0.0-0.06); Absolute Basophil Count 0.05 10^3/uL (0.0-0.2); Absolute Eosinophil Count 0.32 10^3/uL (0.0-0.7); Absolute Lymphocyte Count 1.01 10^3/uL (1.2-3.4); Absolute Monocyte Count 0.64 10^3/uL (0.1-0.8); Absolute Neutrophil Count 3.79 10^3/uL (1.2-6.7); Basophils % 0.9 %; Eosinophils % 5.5 %; HCT 39.7 % (40.0-50.0); HGB 13.6 g/dL (13.5-17.5); Immature Grans % 0.3 %; Lymphocytes % 17.3 %; MCH 31.6 pg (27.0-33.0); MCHC 34.3 % (32.0-36.0); MCV 92 fL (80-95); MPV 10.1 fL (8.0-11.0); Platelet Count 194 10^3/uL (130-400); RBC 4.31 10^6/uL (4.36-5.78); RDW 13.4 % (11.8-14.1); RDW-SD 45.7 fL; WBC 5.83 10^3/uL (4.4-10.8)
[2023-07-31 12:57] LABS: ALT 38 U/L (16-63); AST 27 U/L (15-37); Albumin 3.7 g/dL (3.4-5.0); Alkaline Phosphatase 56 U/L (46-116); Anion Gap 10.4 mmol/L (3-11); BUN 18 mg/dL (7-18); Bilirubin, Total 0.8 mg/dL (0.2-1.0); CO2 23.6 mmol/L (21.0-32.0); CREATININE 1.2 mg/dL (0.70-1.30); Calcium 8.8 mg/dL (8.5-10.1); Chloride 100 mmol/L (98-107); Estimated GFR 63.46 (mL/min/1.73m2); FREE T4 1.08 ng/dL (0.76-1.46); Glucose 92 mg/dL (74-106); Potassium 4.4 mmol/L (3.5-5.1); Sodium 134 mmol/L (136-145); TSH 2.17 uIU/Ml (0.36-3.74); Total Protein 7.4 g/dL (6.4-8.2)
== END 2023-07-31 14:05 | disposition home or self-care (01) ==
LOC: LBO 14:04
PROVIDERS: Visit Provider Internal Medicine
DX: Z79.899 Other long term (current) drug therapy (principal); C78.01 Secondary malignant neoplasm of right lung
CPT/HCPCS: 36415; 80053; 84439; 84443; 85025

== ENCOUNTER 2023-08-21 13:40 | Outpatient (CLI) | payer MEDICARE, SELFPAY ==
[2023-08-21 12:42] LABS: Abs Immature Grans 0.02 10^3/uL (0.0-0.06); Absolute Basophil Count 0.03 10^3/uL (0.0-0.2); Absolute Eosinophil Count 0.34 10^3/uL (0.0-0.7); Absolute Lymphocyte Count 1.12 10^3/uL (1.2-3.4); Absolute Monocyte Count 0.61 10^3/uL (0.1-0.8); Absolute Neutrophil Count 3.79 10^3/uL (1.2-6.7); Basophils % 0.5 %; Eosinophils % 5.8 %; HCT 40.1 % (40.0-50.0); HGB 13.2 g/dL (13.5-17.5); Immature Grans % 0.3 %; MCH 31.4 pg (27.0-33.0); MCHC 32.9 % (32.0-36.0); MCV 96 fL (80-95); Monocytes % 10.3 %; Neutrophils % 64.1 %; Platelet Count 179 10^3/uL (130-400); RDW 13.7 % (11.8-14.1); RDW-SD 47.9 fL; WBC 5.91 10^3/uL (4.4-10.8)
[2023-08-21 13:07] LABS: ALT 41 U/L (16-63); AST 27 U/L (15-37); Albumin 3.6 g/dL (3.4-5.0); Alkaline Phosphatase 60 U/L (46-116); Anion Gap 10.3 mmol/L (3-11); BUN 21 mg/dL (7-18); Bilirubin, Total 0.6 mg/dL (0.2-1.0); CO2 24.7 mmol/L (21.0-32.0); CREATININE 1.3 mg/dL (0.70-1.30); Chloride 104 mmol/L (98-107); Estimated GFR 57.65 (mL/min/1.73m2); FREE T4 0.94 ng/dL (0.76-1.46); Glucose 112 mg/dL (74-106); Potassium 4.6 mmol/L (3.5-5.1); Sodium 139 mmol/L (136-145); TSH 1.97 uIU/Ml (0.36-3.74); Total Protein 7.2 g/dL (6.4-8.2)
== END 2023-08-21 13:41 | disposition home or self-care (01) ==
LOC: LBO 13:41
PROVIDERS: Visit Provider Internal Medicine
DX: Z79.899 Other long term (current) drug therapy (principal)
CPT/HCPCS: 36415; 80053; 84439; 84443; 85025

== ENCOUNTER 2023-09-11 09:38 | Outpatient (CLI) | payer MEDICARE, SELFPAY ==
[2023-09-11 09:00] LABS: Abs Immature Grans 0.02 10^3/uL (0.0-0.06); Absolute Basophil Count 0.04 10^3/uL (0.0-0.2); Absolute Eosinophil Count 0.28 10^3/uL (0.0-0.7); Absolute Lymphocyte Count 1.04 10^3/uL (1.2-3.4); Absolute Monocyte Count 0.38 10^3/uL (0.1-0.8); Absolute Neutrophil Count 2.77 10^3/uL (1.2-6.7); Basophils % 0.9 %; Eosinophils % 6.2 %; HCT 38.2 % (40.0-50.0); HGB 12.8 g/dL (13.5-17.5); Immature Grans % 0.4 %; MCH 31.4 pg (27.0-33.0); MCHC 33.5 % (32.0-36.0); MCV 94 fL (80-95); MPV 9.7 fL (8.0-11.0); Monocytes % 8.4 %; Neutrophils % 61.1 %; Platelet Count 176 10^3/uL (130-400); RBC 4.07 10^6/uL (4.36-5.78); RDW 13.9 % (11.8-14.1); RDW-SD 47.8 fL; WBC 4.53 10^3/uL (4.4-10.8)
[2023-09-11 09:32] LABS: ALT 34 U/L (16-63); AST 22 U/L (15-37); Albumin 3.5 g/dL (3.4-5.0); Alkaline Phosphatase 56 U/L (46-116); Anion Gap 8.6 mmol/L (3-11); BUN 20 mg/dL (7-18); Bilirubin, Total 0.65 mg/dL (0.2-1.0); CO2 26.4 mmol/L (21.0-32.0); CREATININE 1.1 mg/dL (0.70-1.30); Calcium 8.8 mg/dL (8.5-10.1); Chloride 102 mmol/L (98-107); Estimated GFR 70.44 (mL/min/1.73m2); FREE T4 1.11 ng/dL (0.76-1.46); Glucose 109 mg/dL (74-106); Potassium 4.2 mmol/L (3.5-5.1); Sodium 137 mmol/L (136-145); TSH 1.87 uIU/Ml (0.36-3.74); Total Protein 6.9 g/dL (6.4-8.2)
== END 2023-09-11 09:39 | disposition home or self-care (01) ==
LOC: LBO 09:39
PROVIDERS: Visit Provider Internal Medicine
DX: D64.9 Anemia, unspecified (principal); C78.01 Secondary malignant neoplasm of right lung; C64.9 Malignant neoplasm of unspecified kidney, except renal pelvis; Z79.899 Other long term (current) drug therapy
CPT/HCPCS: 36415; 80053; 84439; 84443; 85025

== ENCOUNTER 2023-10-02 14:50 | Outpatient (CLI) | payer MEDICARE, SELFPAY ==
[2023-10-02 12:10] LABS: Abs Immature Grans 0.02 10^3/uL (0.0-0.06); Absolute Basophil Count 0.06 10^3/uL (0.0-0.2); Absolute Eosinophil Count 0.36 10^3/uL (0.0-0.7); Absolute Monocyte Count 0.56 10^3/uL (0.1-0.8); Absolute Neutrophil Count 3.69 10^3/uL (1.2-6.7); Eosinophils % 6.2 %; HCT 37.5 % (40.0-50.0); HGB 12.4 g/dL (13.5-17.5); Immature Grans % 0.3 %; MCH 31.4 pg (27.0-33.0); MCHC 33.1 % (32.0-36.0); MCV 95 fL (80-95); MPV 9.9 fL (8.0-11.0); Monocytes % 9.7 %; Neutrophils % 63.8 %; Platelet Count 167 10^3/uL (130-400); RBC 3.95 10^6/uL (4.36-5.78); RDW-SD 48.2 fL; WBC 5.79 10^3/uL (4.4-10.8)
[2023-10-02 12:34] LABS: ALT 35 U/L (16-63); AST 22 U/L (15-37); Albumin 3.5 g/dL (3.4-5.0); Alkaline Phosphatase 57 U/L (46-116); Anion Gap 9.8 mmol/L (3-11); BUN 26 mg/dL (7-18); Bilirubin, Total 0.49 mg/dL (0.2-1.0); CO2 25.2 mmol/L (21.0-32.0); CREATININE 1.3 mg/dL (0.70-1.30); Calcium 8.9 mg/dL (8.5-10.1); Chloride 104 mmol/L (98-107); Estimated GFR 57.65 (mL/min/1.73m2); FREE T4 1.05 ng/dL (0.76-1.46); Glucose 105 mg/dL (74-106); Potassium 4.4 mmol/L (3.5-5.1); Sodium 139 mmol/L (136-145); TSH 1.66 uIU/Ml (0.36-3.74); Total Protein 7.1 g/dL (6.4-8.2)
== END 2023-10-02 14:51 | disposition home or self-care (01) ==
LOC: LBO 14:51
PROVIDERS: PCP Nurse Practitioner; Visit Provider Internal Medicine
DX: Z79.899 Other long term (current) drug therapy (principal); C78.01 Secondary malignant neoplasm of right lung; C64.9 Malignant neoplasm of unspecified kidney, except renal pelvis
CPT/HCPCS: 36415; 80053; 84439; 84443; 85025